=== PATIENT | female | born 1935 | race African-American/Black ===

== ENCOUNTER 2018-07-06 09:33 | Emergency (ER) | payer MEDICARE, MEDICAID ==
[~2018-07-06] VITALS: Ht 165.1 cm; Wt 60.0 kg
[~2018-07-06 09:33] MED LIST: ASPIRIN; ATENOLOL; ATORVASTATIN; BENICAR; GLIPIZIDE; KETOROLAC; LIPITOR; METFORMIN; PREDFORTE
[2018-07-06 09:35] VITALS: BP 162/66
== END 2018-07-06 11:19 | disposition home or self-care (01) ==
LOC: ER 09:33
DX: M54.30 Sciatica, unspecified side (principal); E11.9 Type 2 diabetes mellitus without complications; I10 Essential (primary) hypertension; E78.00 Pure hypercholesterolemia, unspecified; Z79.84 Long term (current) use of oral hypoglycemic drugs; Z79.82 Long term (current) use of aspirin
CPT/HCPCS: 99283